=== PATIENT | female | born 1995 | race Caucasian/White ===

== ENCOUNTER 2017-06-16 10:01 | Emergency (ER) | payer OTHER ==
--- NOTE | ~2017-06-16 | ECHO ---
Transthoracic Echocardiography Report (TTE) Demographics Patient Name ARTURO TEJEDA Date of Study 06/16/2017 Patient Number [id number] Visit Number [id number] Date of 1995 Room Number Accession Number [id number] Gender Female Age 21 year(s) Referring Nolan Solomon MD [employer]ume Maker Abby Muñiz [facility], Physician RVT Physician Interpreting Brandin Arias Castings Drafter Physician A Supervising Ordering Physician Brandin Arias MD/PAULINA Bhatti MD Nurse Stress Manager Finance Conclusions Contractility Score Summary Normal Left Ventricular contractility was noted. Summary The estimated left ventricular ejection fraction is 60-65%. Diastolic assessment reveals normal relaxation. Upper normal RV size Normal right ventricular systolic performance. Upper normal right atrial size. Procedure Type of Study TTE procedure:Echo Limited w/o Contrast. Procedure Date Date: 06/16/2017 Start: 11:07 AM Study Location: Inpatient Portable Technical Quality: Adequate visualization Indications:Syncope. Additional Indications:abnormal EKG Appropriate Use Criteria: 9 Patient Status: Routine Rhythm: Sinus bradycardia HR: 59 bpm BP: 124/67 mmHg M-Mode/2D Measurements LV Diastolic Dimension: 5.09 cm LV Systolic Dimension: 3.24 cm LV Septum Diastolic: 0.72 cm LV Septum Systolic: 3.04 cm LV PW Diastolic: 0.79 cm AO Root Dimension: 1.8 cm Cardiac Output: 4.3 l/min LA Dimension: 3.4 cm LVOT: 1.9 cm IVC Inspiration: 1.29 cm LVOT VTI: 25.7 cm RV Base: 3.85 cm LV Stroke volume: 72.83 ml RV Length: 6.06 cm TAPSE: 2.3 cm TDI-S': 14.4 cm/s Doppler Measurements AV Peak Velocity: 1.24 m/s MV Peak E-Wave: 0.89 m/s AV Peak Gradient: 6.15 mmHg MV Peak A-Wave: 0.35 m/s AV Mean Gradient: 4 mmHg MV E/A Ratio: 2.55 LVOT Peak Velocity: 0.99 m/s MV P1/2t: 66 msec TR Gradient:18.32 mmHg PV Peak Velocity: 0.69 m/s Estimated RAP:3 mmHg PV Peak Gradient: 1.92 mmHg Estimated RVSP: 21 mmHg Estimated PASP: 21.32 mmHg E' Septal Velocity: 0.15 m/s A' Septal Velocity: 0.07 m/s E' Lateral Velocity: 0.2 m/s A' Lateral Velocity: 0.07 m/s MV E/E' Ratio: 6 Findings Left Ventricle The estimated left ventricular ejection fraction is 60-65%. Diastolic assessment reveals normal relaxation. Right Ventricle Upper normal RV size Normal right ventricular systolic performance. Left Atrium Normal left atrial size. Right Atrium Upper normal right atrial size. Mitral Valve Trivial mitral regurgitation by color Doppler. Aortic Valve Normal aortic valve structure and function. Tricuspid Valve Mild tricuspid regurgitation by color Doppler. Normal estimated pulmonary artery pressure. Pulmonic Valve No pulmonic valve regurgitation by color Doppler. Pericardial Effusion No evidence of pericardial effusion. Miscellaneous Visualized portions of the aortic root and ascending aorta appear normal in size. Pleural Effusion No evidence of pleural effusion. Contractility Score LV regional wall motion:(0-Non visualized 1-Normal 2-Hypokinesis 3-Akinesis 4-Dyskinesis 5-Aneurysm) Signature dtt: Milton Ghotra dtd: 06/16/17 1107 Physician Self Edit
--- NOTE | ~2017-06-16 | ER ---
PATIENT'S NAME: ARTURO CARRILLO [facility] AGE: 21 Y [address] ROOM: [place] [address] LOCATION: [facility] ADMIT DATE: 06/16/2017 ER/Outpatient Report DISCHARGE DATE: 06/16/2017 FAMILY PHYSICIAN: PHYSICIAN, NO ATTENDING PHYSICIAN: Juanito Francisco CHIEF COMPLAINT: Syncope. 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 She was in a room with a patient and the care team, when she just collapsed and passed out. She denies any warning signs of it. The exact duration is unclear, but she did feel a little bit hot right before it started, otherwise. She denies any prior issues with this, except for one time she would feel lightheaded in the past, but has never passed out. No family history of sudden or other concerning symptoms along those lines and she states she is, otherwise, healthy. 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 PAST MEDICAL HISTORY: Documented on the record and reviewed by me. SOCIAL HISTORY: Documented on the record and reviewed by me. MEDICATIONS: Documented on the record and reviewed by me. ALLERGIES: DOCUMENTED ON THE RECORD AND REVIEWED BY ME. REVIEW OF SYSTEMS: All systems reviewed and negative, except as noted in the HPI. PHYSICAL EXAMINATION: VITAL SIGNS: Blood pressure is 108/65, pulse 55, respiratory rate 16, temperature 97.8, SpO2 is 95% on room air. Pain 0/10. GENERAL: Age-appropriate female, in no apparent pain or distress. NEUROLOGIC: Awake and alert. GCS 15. No focal deficits. No asymmetry. HEENT: Normocephalic, atraumatic. Eyes are PERRL. Oropharynx is clear. NECK: Supple. Trachea is midline CHEST/HEART: Regular rate and rhythm with no murmurs. LUNGS: Clear to auscultation bilaterally. No rhonchi, wheezes, or rales. ABDOMEN: Soft, nontender, and nondistended. No rebound or guarding. PATIENT'S NAME: ARTURO CARRILLO [facility] AGE: 21 Y [address] ROOM: [place], [place] [address] LOCATION: [facility] ADMIT DATE: 06/16/2017 ER/Outpatient Report DISCHARGE DATE: 06/16/2017 FAMILY PHYSICIAN: PHYSICIAN, NO ATTENDING PHYSICIAN: Juanito Francisco EXTREMITIES: Warm and well perfused with no edema or erythema. SKIN: Clean, dry, and intact. BACK: Normal to inspection and palpation. No CVA or spinal tenderness. LABS AND X-RAYS: No imaging was obtained. EKG is notable for sinus rhythm with otherwise normal intervals and axis. There are Epsilon waves in lead II and V3 most prominently. No comparison EKG available. Labs are notable for normal magnesium, phosphorus, CBC, and CMS other than an alkaline phosphatase of 29. Cardiac enzymes and proBNP are not abnormal. Echocardiogram was ordered and interpreted by Dr. Ghotra. IMPRESSION: 1. Syncope. 2. Abnormal EKG findings. EMERGENCY DEPARTMENT COURSE: The patient was seen and evaluated as above. Based on her presentation, a syncopal workup was undertaken. The finding of Epsilon waves in the setting of acute syncope for this individual is somewhat concerning. Epsilon waves are not diagnostic, but indicative of arrhythmogenic right ventricular dysplasia. Given that and with the patient syncope in a situation that would not otherwise cause issues for the patient normally, prompted me to discuss the case with Dr. Ghotra. He requests cardiac markers and echo. He personally came to the ER and reviewed the EKG and echocardiogram. He has requested a 2-week Holter monitor and follow up 1 week after completion. I believe this is appropriate. The patient was discharged with a 2-week Holter from the ER in stable condition. All questions were answered. After receiving a liter of fluid, she was feeling much better and had no further symptoms and was anxious to get back to the classroom. MD ALOK JACKSON/dreadl /[id number] d: 06/16/176 t: 06/21/17 0642, OUTPATIENT REPORT
[2017-06-16 10:28] LABS: BASOPHIL # 0.1 K/uL (0.0-0.2); BASOPHIL % 0.9 %; EOSINOPHIL # 0.4 K/uL (0.0-0.5); EOSINOPHIL % 6.1 %; IMMATURE GRANULOCYTE % 0.2 %; LYMPHOCYTE # 2.5 K/uL (0.8-4.0); LYMPHOCYTE % 43.1 %; MCH 30.8 pg (27.0-34.0); MCHC 33.3 gm/dL (32.0-36.5); MCV 92.5 fl (83.0-98.0); MONOCYTE # 0.5 K/uL (0.0-1.0); MPV 9.4 fl (9.4-12.4); NEUTROPHIL # (ANC) 2.4 K/uL (1.8-7.8); NEUTROPHIL % 41.7 %; NRBC % 0 /100WBC (0-0.00); PLATELET COUNT 306 K/uL (150-450); RBC 4.54 M/uL (3.50-5.00); RDW-CV 12.6 % (11.9-14.6); WBC 5.8 K/uL (4.0-11.0)
[2017-06-16 10:44] LABS: ALBUMIN 3.8 gm/dL (3.5-5.0); ANION GAP 10.9 (10.0-19.0); CALCIUM 8.9 mg/dL (8.5-10.5); POTASSIUM 4.9 mMol/L (3.7-5.1); TOTAL BILIRUBIN 0.6 mg/dL (0.0-1.5); TOTAL PROTEIN 7.2 g/dL (6.0-8.4)
[2017-06-16 10:47] LABS: PHOSPHORUS 3.5 mg/dL (2.5-4.9)
[2017-06-16 10:48] LABS: MAGNESIUM 2.2 mg/dL (1.8-2.6)
== END 2017-06-16 14:10 | disposition disaster alternative care site (69) ==
LOC: GMED 10:01
PROVIDERS: Emergency Medicine
DX: R55 Syncope and collapse (principal); R94.31 Abnormal electrocardiogram [ECG] [EKG]
CPT/HCPCS: J7030